=== PATIENT | female | born 1930 | race Caucasian/White ===

== ENCOUNTER 2017-03-11 11:48 | Emergency (ER) | payer OTHER, BC ==
[~2017-03-11 11:48] MED LIST: CALC-354 PO; DESV50TA2 PO; LEVO25TA5 PO; METO25TA56 PO; SENN-91; SIMV40TA2 PO; VTMD1000 PO; ZYP25 PO; [UNRECOGNIZED DRUG - CODE] PO
[2017-03-11 11:54] VITALS: TEMP 36.9
[2017-03-11] MEDS ORDERED: RTL5 PO (12:24)
--- NOTE | 2017-03-11 12:46 | DIAGNOSTIC IMAGING REPORT ---
R FOOT MIN 3 VIEWS ROUTINE CLINICAL HISTORY: right ankle/foot injury trauma. Pain. COMPARISON: None. DISCUSSION: Oblique slightly angled fracture distal aspect fourth metatarsal. Moderate degenerative change throughout all remaining osseous structures. Small heel spur. Moderate generalized soft tissue edematous change. There is no evidence for soft tissue swelling. IMPRESSION: 1. Oblique slightly angled fracture distal fourth metatarsal. Moderate generalized soft tissue edema and degenerative change. No evidence of dislocation. The above report was generated using voice recognition software. It may contain grammatical, syntax or spelling errors. Electronically signed by: Manuel Carrasco M.D. 03/11/2017 12:45 PM Dictated Date/Time: 03/11/2017 12:44 PM
--- NOTE | 2017-03-11 12:54 | DIAGNOSTIC IMAGING REPORT ---
R ANKLE MIN 3 VIEWS ROUTINE CLINICAL HISTORY: Right ankle pain status post trauma COMPARISON: None. DISCUSSION: The bones are osteopenic. There is Achilles insertional calcification. No acute fractures are visualized. The ankle mortise appears intact. IMPRESSION: No acute fractures or subluxations identified. Electronically signed by: Omar Winter M.D. 03/11/2017 12:53 PM Dictated Date/Time: 03/11/2017 12:52 PM
--- NOTE | 2017-03-11 13:39 | EMERGENCY ROOM VISIT NOTE ---
History First contact with patient: 12:04 Chief Complaint: ANKLE PAIN Stated Complaint: ANKLE PAIN History of Present Illness The patient is a 86 year old female who presents to the Emergency Room with complaints of an ankle injury. The patient states that she missed a stair while walking downstairs 2 days ago and twisted her right ankle/foot. She states that she now has pain in her right foot which is worse with weight bearing. She rates her discomfort 6/10. She denies previous injuries to this ankle/foot. She states that she did not fall and strike her head when the injury occurred. Review of Systems A 6 point review of systems was reviewed with the patient with pertinent positives and negatives as per history of present illness. All else were negative. Past Medical/Surgical History Medical Problems: (1) CKD (chronic kidney disease), stage III (2) Depression (3) H/O syncope (4) History of electroconvulsive therapy (5) History of subdural hematoma (6) Hyperlipidemia (7) Hypertension (8) Hypothyroidism (9) Osteoporosis (10) Pancytopenia (11) Tachyarrhythmia Surgical Problems: (1) H/O colonoscopy (2) S/p EGD (3) S/P ORIF (open reduction internal fixation) fracture Family History Cancer Social History Smoking Status: Never Smoker Marital Status: Occupation Status: retired Current/Historical Medications Scheduled Calcium Carbonate-Cholecalcife (Caltrate 600+D), 1 TAB PO DAILY Cholecalciferol (Vitamin D3), 2,000 UNITS PO BID Desvenlafaxine Succinate (Pristiq), 50 MG PO DAILY Levothyroxine Sodium (Levothyroxine Sodium), 25 MCG PO DAILY Methylphenidate HCl (Methylphenidate HCl), 2.5 MG PO QAM Metoprolol Tartrate (Lopressor) (Lopressor), 12.5 MG PO BID Nutritional Supplements (Ensure Complete), 1 CAN PO DAILY Olanzapine (Olanzapine), 2.5 MG PO QPM Sennosides-Docusate Sodium (Senna S), 2 TABS QPM Simvastatin (Zocor), 40 MG PO HS Physical Exam Vital Signs Date Time Temp Pulse Resp B/P (MAP) Pulse Ox O2 Delivery O2 Flow Rate FiO2 03/11/17 13:50 70 18 154/80 95 03/11/17 11:54 36.9 62 20 144/85 96 Room Air Physical Exam VITALS: Vitals are noted on the nurse's note and reviewed by myself. Vital signs stable. GENERAL: This is an 86-year-old female, in no acute distress, nondiaphoretic, well-developed well-nourished. SKIN: Capillary refill less than 2 seconds. MUSCULOSKELETAL: There is tenderness to palpation of the dorsal aspect of the lateral right foot. Mild tenderness to the right lateral malleolus. Full range of motion of the ankle and all toes. Normal sensation to the toes. Capillary refill within 2 seconds. NEURO: Patient was alert and oriented to person place and time. Medical Decision & Procedures ER Provider Diagnostic Interpretation: R ANKLE MIN 3 VIEWS ROUTINE DISCUSSION: The bones are osteopenic. There is Achilles insertional calcification. No acute fractures are visualized. The ankle mortise appears intact. IMPRESSION: No acute fractures or subluxations identified. R FOOT MIN 3 VIEWS ROUTINE DISCUSSION: Oblique slightly angled fracture distal aspect fourth metatarsal. Moderate degenerative change throughout all remaining osseous structures. Small heel spur. Moderate generalized soft tissue edematous change. There is no evidence for soft tissue swelling. IMPRESSION: 1. Oblique slightly angled fracture distal fourth metatarsal. Moderate generalized soft tissue edema and degenerative change. No evidence of dislocation. Medical Decision Differential diagnosis includes fracture, contusion, dislocation, among others. The patient is an 86-year-old female who presents today complaining of right foot/ankle pain. X-ray showed a fracture of the fourth metatarsal. Patient was placed in a row top fracture boot. She has a walker at home and will use this to aid with ambulation. She was given information for orthopedic referral. Conservative measures were discussed. She declined any stronger analgesics. She verbalized understanding of my assessment and treatment plan and was discharged home in good condition. The patient was independently evaluated by Dr. Kinney, ED attending physician, who agreed with my assessment and treatment plan. Medication Reconcilliation Current Medication List: was personally reviewed by me Blood Pressure Screening Patient's blood pressure: Elevated blood pressure Blood pressure disposition: Referred to PCP Impression Primary Impression: Fracture of fourth metatarsal bone Departure Information Dispostion Home / Self-Care Condition GOOD Referrals Parker Adames M.D. (PCP) Howard Nicole MD Patient Instructions My [facility] [employer] Additional Instructions For pain control, you can use the following [id number] medicines (if >12 yo): - Regular strength (325mg/tab) Tylenol (acetaminophen) 2 tabs every 4-6 hours as needed. Do not exceed 12 tablets in a 24 hour period. Avoid taking more than 4 grams (4000 mg) of Tylenol per day. This includes any other sources of acetaminophen you may take on a regular basis. Wear the splint when up and walking. Make sure to use the walker to help with walking. Call [facility] orthopedics to schedule follow-up. Return to the emergency department with any worsening pain, numbness, or new/ concerning symptoms. Problem Qualifiers Primary Impression: Fracture of fourth metatarsal bone Encounter type: initial encounter Fracture type: closed Fracture alignment : displaced Laterality: right Qualified Codes: S92.341A - Displaced fracture of fourth metatarsal bone, right foot, initial encounter for closed fracture
[2017-03-11 13:50] VITALS: BP 154/80; PULSE 70; O2SAT 95
--- NOTE | 2017-03-11 18:57 | EMERGENCY ROOM VISIT NOTE ---
ED Visit Note First contact with patient: 12:04 HPI: right foot pain Plan: Xray with fracture of distal fourth metatarsal. Post-op shoe. Pcp and ortho f/u. I reviewed the patient's past medical history, medications, and visit nursing notes. I discussed the case with the physician multimedia assistant, examined the patient, and agree with the findings and plan as documented in the physician assistants note.
== END 2017-03-11 13:51 | disposition home or self-care (01) ==
LOC: C.EDB 11:49 → C.EDD 13:51
DX: S92.341A Displaced fracture of fourth metatarsal bone, right foot, initial encounter for closed fracture (principal); X50.1XXA Overexertion from prolonged static or awkward postures, initial encounter; Y93.01 Activity, walking, marching and hiking; Y99.8 Other external cause status; I12.9 Hypertensive chronic kidney disease with stage 1 through stage 4 chronic kidney disease, or unspecified chronic kidney disease; N18.3 Chronic kidney disease, stage 3 (moderate); E03.9 Hypothyroidism, unspecified; F32.9 Major depressive disorder, single episode, unspecified; E78.5 Hyperlipidemia, unspecified; M81.0 Age-related osteoporosis without current pathological fracture; Z98.890 Other specified postprocedural states; Z79.899 Other long term (current) drug therapy

== ENCOUNTER → 2017-03-27 | Outpatient (CLI) | payer OTHER, BC ==
[~2017-03-27] MED LIST changes: +RTL5 PO
== END | disposition home or self-care (01) ==
LOC: C.RDSM 12:45
PROVIDERS: ATTEND Orthopaedic Surgery Sports Medicine
DX: Z09 Encounter for follow-up examination after completed treatment for conditions other than malignant neoplasm (principal); S92.901D Unspecified fracture of right foot, subsequent encounter for fracture with routine healing; X58.XXXD Exposure to other specified factors, subsequent encounter

== ENCOUNTER → 2017-04-24 | Outpatient (CLI) | payer OTHER, BC ==
--- NOTE | 2017-04-24 14:49 | DIAGNOSTIC IMAGING REPORT ---
R FOOT MIN 3 VIEWS CLINICAL HISTORY: RIGHT FOOT PAIN COMPARISON: None. DISCUSSION: Mild hallux valgus configuration great toe. Mild bunion deformity distal first metatarsal. Mild soft tissue edema. Slightly angled fracture distal aspect fourth metatarsal. This shows partial healing compared to the prior study 03/27/2017 there continues be a mild degree of angulation but this is unchanged. IMPRESSION: Partial interval healing of an oblique fracture distal aspect fourth metatarsal. 2. Alignment is unchanged. 3. Degenerative change great toe unchanged as well. The above report was generated using voice recognition software. It may contain grammatical, syntax or spelling errors. Electronically signed by: Manuel Carrasco M.D. 04/24/2017 2:48 PM Dictated Date/Time: 04/24/2017 2:45 PM
== END | disposition home or self-care (01) ==
LOC: C.RDSM 19:37
PROVIDERS: ATTEND Physician Assistant
DX: S92.341D Displaced fracture of fourth metatarsal bone, right foot, subsequent encounter for fracture with routine healing (principal); X58.XXXD Exposure to other specified factors, subsequent encounter